=== PATIENT | male | born 1955 | race Caucasian/White ===

== ENCOUNTER 2018-12-17 08:19 | Emergency (ER) | payer BC ==
[~2018-12-17] VITALS: Ht 175.3 cm; Wt 81.7 kg
--- OUTSIDE RECORDS SUMMARY | ~2018-12-17 | XMS | Clinical Summary ---
Demographics + + + | Address | [address] | | | [place] [address] | + + + | Home Phone | | + + + | Preferred Language | Unknown | + + + | Marital Status | | + + + | Restorationist Affiliation | Unknown | + + + | Race | Unknown | + + + | Ethnic Group | Unknown | + + + Author + + + | Author | [facility] | + + + | Organization | [facility] | + + + | Address | Unknown | + + + | Phone | Unavailable | + + + Support + + +---------+ + | Name | Relationship | Address | Phone | + + +---------+ + | Bisi Howard | ECON | Unknown | | + + +---------+ + Care Team Providers + +------+ + | Care Slab Stripper Name | Role | Phone | + +------+ + | Lauri Mcgovern | PP | | + +------+ + Allergies + + + + + + | Active Allergy | Reactions | Severity | Noted | Comments | | | | | Date | | + + + + + + | Clindamycin | Rash | Medium | 03/22/20 | | | | | | 17 | | + + + + + + Current Medications + + +--------+---------+------+------+-------+ | Prescription | Sig. | Disp. | Refills | Star | End | Statu | | | | | | t | Date | s | | | | | | Date | | | + + +--------+---------+------+------+-------+ | | | | | 06/2 | | Activ | | bisoprolol-hydrochlo | | | | /20 | | e | | rothiazide (ZIAC) | | | | 17 | | | | 5-6.25 MG per tablet | | | | | | | + + +--------+---------+------+------+-------+ | meloxicam (MOBIC) | | | | 07/0 | | Activ | | 15 MG tablet | | | | 520 | | e | | | | | | 17 | | | + + +--------+---------+------+------+-------+ | methotrexate 2.5 | Take 6 tablets by | 30 | 2 | 08/2 | | Activ | | MG | mouth once a week. | tablet | | /20 | | e | | tabletIndications: | | | | 17 | | | | Rheumatoid Arthritis | | | | | | | + + +--------+---------+------+------+-------+ | folic acid | Take 1 tablet by | 90 | 11 | 08/2 | | Activ | | (FOLVITE) 1 MG | mouth daily for 90 | tablet | | 09/22 | | e | | tabletIndications: | days. | | | 17 | | | | Rheumatoid arthritis | | | | | | | | involving multiple | | | | | | | | sites with positive | | | | | | | | rheumatoid factor | | | | | | | | (FORMERLY [facility]), High risk | | | | | | | | medication use | | | | | | | + + +--------+---------+------+------+-------+ Active Problems + + + | Problem | Noted Date | + + + | Rheumatoid arthritis involving multiple sites with positive | 04/23/2017 | | rheumatoid factor (FORMERLY [facility]) | | + + + + + | Last Assessment & Plan: - sero-positive, non-erosive RA- will | | start him on MTX 15 mg/ewek, FA. To repeat CBC/CMP in 6 weeks- | | RTC in 3 monthsPatient was advised that methotrexate can cause | | mouth sores, hair loss, and fatigue, bone marrow toxicity and | | that blood would need to be checked 4 weeks after starting the | | medication and to call if there was trouble tolerating it. Liver | | toxicity is also possible so blood would need to be monitored | | every 2 to 3 months for as long as the medicine was taken. | | Patient was advised to avoid alcohol consumption while taking | | methotrexate. Long-term risks include lymphoma. A baseline chest | | Xray was already obtained | + + + + + | High risk medication use | 04/23/2017 | + + + + + | Last Assessment & Plan: Basic labs Monitored (CBC,CMP and | | ESR): Up to date. Repeat in 6 weeks Labs routinely ordered due | | to high risk medication use- Monitored for cytopenias, liver | | toxicity, renal dysfunction and disease activity. Hepatitis | | panel: negative March 2017This will be checked every 5 years | | based on patients risk or at time of biologic drug change. | + + + + + | H/O calcium pyrophosphate deposition disease (CPPD) | 04/23/2017 | + + + + + | Last Assessment & Plan: - based on xray findings. Clinical | | features are not suggestive of typical symptoms of pseudogout - | | may consider adding Colchicine or work-up for secondary causes if | | his symptoms do not improve with current treatment plan | + + Family History + +------+ + + | Relation | Name | Status | Comments | + +------+ + + | Father | | | | + +------+ + + | Mother | | Alive | | + +------+ + + Social History + +-------+ +--------+------+ | Tobacco Use | Types | Packs/Day | Years | Date | | | | | Used | | + +-------+ +--------+------+ | Former Smoker | | | | | + +-------+ +--------+------+ + +---+---+---+ | Smokeless Tobacco: | | | | | Never Used | | | | + +---+---+---+ + + +---------+ + | Alcohol Use | Drinks/We | oz/Week | Comments | | | ek | | | + + +---------+ + | No | | | | + + +---------+ + + + + | Sex Assigned at | Date Recorded | | | | + + + | Not on file | | + + + Last Filed Vital Signs + + + + | Vital Sign | Reading | Time Taken | + + + + | Blood Pressure | 162/90 | 04/23/2017 11:14 AM PDT | + + + + | Pulse | 53 | 04/23/2017 10:43 AM PDT | + + + + | Temperature | 36.1 C (97 F) | 04/23/2017 10:43 AM PDT | + + + + | Respiratory Rate | - | - | + + + + | Oxygen Saturation | - | - | + + + + | Inhaled Oxygen | - | - | | Concentration | | | + + + + | Weight | 97.4 kg (214 lb 12.8 | 04/23/2017 10:43 AM PDT | | | oz) | | + + + + | Height | - | - | + + + + | Body Mass Index | - | - | + + + + Plan of Treatment + + + + + | Health Maintenance | Due Date | Last Done | Comments | + + + + + | Vaccine: | | | | | Dtap/Tdap/Td (1 - | 5 | | | | Tdap) | | | | + + + + + | Colon Cancer | | | | | Screening | 6 | | | | (Colonoscopy) | | | | + + + + + | Vaccine: Zoster (1 | | | | | of 2) | 6 | | | + + + + + | Vaccine: Influenza | | | | | (Season Ended) | 9 | | | + + + + + Results Not on filefrom Last 3 Months Insurance +---------+--------+ +------+-------+ + | Payer | Benefi | Subscriber | Type | Phone | Address | | | t Plan | ID | | | | | | / | | | | | | | Group | | | | | +---------+--------+ +------+-------+ + | PREMERA | PREMER | [id number] | | | [address] [address] | | | [place] | | | | [place], [place] | | | [place] | | | | [phone] | | | FED | | | | | | | PPO | | | | | +---------+--------+ +------+-------+ + + +--------+ +--------+ + + | Guarantor Name | Accoun | Relation to | Date | Phone | Billing Address | | | t Type | Patient | of | | | | | | | | | | + +--------+ +--------+ + + | VICTOR HUGO HOWARD | Person | Self [birth year] | 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
--- OUTSIDE RECORDS SUMMARY | ~2018-12-17 | XMS | Clinical Summary ---
Demographics + + + | Address | [address] | | | [place] [address] | + + + | Home Phone | | + + + | Preferred Language | Unknown | + + + | Marital Status | | + + + | Roman Catholic Affiliation | Unknown | + + + | Race | Unknown | + + + | Ethnic Group | Unknown | + + + Author + + + | Author | [facility] | + + + | Organization | [facility] | + + + | Address | Unknown | + + + | Phone | Unavailable | + + + Support + + +---------+ + | Name | Relationship | Address | Phone | + + +---------+ + | Bisi Howard | ECON | Unknown | | + + +---------+ + Care Team Providers + +------+ + | Care Editor Managing Newspaper Name | Role | Phone | + [...] | | | | | | (FORMERLY [facility]), High risk | | | | | | | | medication use | | | | | | | + + +--------+---------+------+------+-------+ Active Problems + + + | Problem | Noted Date | + + + | Rheumatoid arthritis involving multiple sites with positive | 04/23/2017 | | rheumatoid factor ([facility]LY [facility]) | | + + + + + [...] +------+-------+ + | PREMERA | PREMER | [id number] | | | [address] [address] | | | [place] | | | | [place], [place] | | | [place] | | | | [phone] | | | FED | | | [...] [birth year] | 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
[~2018-12-17 08:19] MED LIST: BENICAR20 MG PO; BISOPROLOL-HCT1 EAC1 PO; BISOPROLOL-HCT1 EACH PO; DILAUDID4 MG PO; FLOMAX0.4 MG PO; HYDROMORPHONE HC4 MG PO; OXYCODONE HCL5 MG PO; XARELTO10 MG PO
--- NOTE | 2018-12-17 16:56 | EKG ---
[facility] [address] [facility] [place], [place] [address] Signed Normal sinus rhythm Normal ECG No previous ECGs available Confirmed by ALINA CHRISTINE DO ([id number]) on 12/17/2018 4:56:33 PM Electronically Signed By: ALINA CHRISTINE DO 12/17/18 1656 PATIENT NAME: VINH HOWARD Electrocardiogram DATE OF : 57 PHYSICIAN: ALINA CHRISTINE DO REPORT #: [id number] REPORT IS CONFIDENTIAL AND NOT TO BE RELEASED WITHOUT AUTHORIZATION
== END 2018-12-17 10:15 | disposition home or self-care (01) ==
LOC: ED 08:19
DX: R07.89 Other chest pain (principal); I10 Essential (primary) hypertension; K21.9 Gastro-esophageal reflux disease without esophagitis; Z88.1 Allergy status to other antibiotic agents; Z79.899 Other long term (current) drug therapy
CPT/HCPCS: 71045; 80053; 84484; 85025; 93005; 93010; 99285-25

== ENCOUNTER 2021-05-12 06:30 | Day surgery (SDC) | payer OTHER ==
[~2021-05-12] VITALS: Ht 175.3 cm; Wt 90.2 kg
[~2021-05-12 06:30] MED LIST changes: +CHLORTHALIDONE25 MG PO; +IBUPROFEN200 M1 PO; +LISINOPRIL5 MG PO
--- NOTE | 2021-05-12 08:02 | NUR ---
05/12/21 0802 Francheska Bourgeois 075 PATIENT ARRIVES TO PACU RESTING WITH EYES CLOSED. OPENS EYES AND RESPONDS APPROPRIATELY TO QUESTIONS, BACK TO SLEEP WHEN NOT STIMULATED RESP EVEN AND UNLABORED, SNORES AT TIMES, NC AT 3 LITERS, SATS >93%. PASSIN GAS.
--- NOTE | 2021-05-13 07:26 | OR ---
[facility] [address] [place], [place] [address] Signed DATE OF OPERATION: 05/12/2021 SURGEON: Yung Cooper MD PREOPERATIVE DIAGNOSES: 1. Mother with colon cancer in her late 70s. 2. Father with colon cancer, age 83. 3. Personal history of colonic polyps in [address] Moreno. 4. Diverticulosis. 5. Negative guaiac stool in 2019. POSTOPERATIVE DIAGNOSES: 1. 5 mm polyp at 12 cm (rectum). 2. Minimal internal hemorrhoids. 3. Moderate sigmoid diverticulosis. PROCEDURE: Colonoscopy with hot biopsy. ESTIMATED BLOOD LOSS: None. INDICATIONS: Victor Hugo is a 66-year-old gentleman, asked to see me for a followup colonoscopy. He currently has no lower GI complaints. His mother had developed colon cancer in late 70s. His father was diagnosed with colon cancer at age 83. Victor Hugo remembers having polyps [place] in [address] Moreno. He was told he had diverticulosis. He also was guaiac negative in 2019. In the office, I gave him a pamphlet on colonoscopy and we looked at that together. He understands the nature of that test. There is risk including, but not limited to gas bloating, crampy abdominal pain, bleeding, perforation requiring surgery, and missed diagnosis. He also understands the need for IV conscious sedation. He had expressed understanding and wished to proceed. PROCEDURE NOTE: Victor Hugo was taken into our endoscopy suite and placed in the left lateral decubitus position. He did receive Ancef due to his bilateral hip replacements. He also received 6 mg of Versed and 150 mcg of fentanyl to cover the case. A digital rectal exam was performed. He was getting some induration and slight enlargement to his prostate gland. The adult colonoscope was introduced and advanced under direct visualization into the cecum itself without difficulty. Overall, his prep was good. A couple of areas had to Electronically Signed By: YUNG COOPER MD 05/13/21 0726 PATIENT NAME: VICTOR HUGO HOWARD OPERATIVE REPORT DATE OF : 57 REPORT #: [id number] PHYSICIAN: YUNG COOPER MD PCP: [place] NICOLE MD REPORT IS CONFIDENTIAL AND NOT TO BE RELEASED WITHOUT AUTHORIZATION [facility] [address] [place] [address] Signed be irrigated and suctioned out. We could easily see the appendiceal orifice and the ileocecal valve. We took pictures throughout for photodocumentation. The scope was then slowly withdrawn. He does have diverticula in the sigmoid colon. They were moderate in size, moderate in number, and scattered about. The rectum showed a 5 mm polyp at 12 cm. It was easily removed with hot biopsy forceps. Upon retroflexion of the scope, he does have minimal internal hemorrhoid columns. After this, the gas was suctioned out and colonoscope removed. Victor Hugo tolerated the procedure quite well. RECOMMENDATIONS: Victor Hugo can follow up in my office in 7 to 14 days to review his results. He will be on the 5-year rotation. Yung Cooper MD ALB/MODL /[id number] cc: Chart Filed Incomplete MD Yung Kuhn MD Copies: CHART FILED INCOMPLETE YUNG COOPER MD ~ Electronically Signed By: YUNG COOPER MD 05/13/21 0726 PATIENT NAME: VICTOR HUGO HOWARD OPERATIVE REPORT DATE OF : 57 REPORT #: [id number] PHYSICIAN: YUNG COOPER MD PCP: [place] NICOLE MD REPORT IS CONFIDENTIAL AND NOT TO BE RELEASED WITHOUT AUTHORIZATION
--- NOTE | 2021-05-13 12:07 | PATH ---
[facility] [address] [place], [place] [address] Signed SPECIMEN(S): A RECTAL POLYP AT 12 CM SPECIMEN SOURCE: A. RECTAL POLYP AT 12 CM CLINICAL HISTORY: Colonoscopy. History of polyps. MICROSCOPIC DESCRIPTION: Histologic sections of all submitted blocks are examined by light microscopy. These findings, together with the gross examination, support the pathologic diagnosis. FINAL PATHOLOGIC DIAGNOSIS: Rectum, polyp at 12 cm, polypectomy: - Hyperplastic polyp. - Negative for dysplasia or malignancy. NAL:cml:C2NR GROSS DESCRIPTION: The specimen, labeled "KO, #1," and designated on the requisition "rectum polyp at 12 cm," is received in formalin and consists of one velazquez soft tissue fragment that measure 0.3 cm in greatest dimension. The specimen is entirely submitted in cassette (A1). AT (under the direct supervision of a pathologist) The Gross Description was prepared using a voice recognition system. The report was reviewed for accuracy; however, sound-alike word errors, addition and/or deletions may occur. If there is any question about this report, please contact Client Services. PERFORMING LABORATORY: The technical component was performed by [facility], [address] [place] [address] (Clothing Supervisor: Opal Crum MD; CLIA# [id number]). [facility], [address] [address] (CLIA# [id number]). Diagnostician: Simona Harris MD Pathologist Electronically Signed 05/13/2021 PATIENT NAME: VINH HOWARD PATHOLOGY DATE OF : 57 REPORT #: [id number] PHYSICIAN: [facility] PATH[facility] PCP: [place] NICOLE MD REPORT IS CONFIDENTIAL AND NOT TO BE RELEASED WITHOUT AUTHORIZATION [address] [place], [place] [address] Signed Copies: ~ PATIENT NAME: VINH HOWARD PATHOLOGY DATE OF : 57 REPORT #: [id number] PHYSICIAN: [facility] PATHOLOGY PCP: [place] NICOLE MD REPORT IS CONFIDENTIAL AND NOT TO BE RELEASED WITHOUT AUTHORIZATION
== END 2021-05-12 08:45 | disposition home or self-care (01) ==
LOC: OPS 06:30 → DS 06:30 → OPS 06:45
PROVIDERS: ATTEND Colon & Rectal Surgery
PROC: 0DBP8ZX Excision of Rectum, Via Natural or Artificial Opening Endoscopic, Diagnostic (ICD-10-PCS; principal; 2021-05-12 06:45)
DX: D12.8 Benign neoplasm of rectum (principal); K64.8 Other hemorrhoids; K57.30 Diverticulosis of large intestine without perforation or abscess without bleeding; I10 Essential (primary) hypertension; N40.0 Benign prostatic hyperplasia without lower urinary tract symptoms; Z87.891 Personal history of nicotine dependence; Z88.8 Allergy status to other drugs, medicaments and biological substances; Z91.048 Other nonmedicinal substance allergy status; Z80.0 Family history of malignant neoplasm of digestive organs
CPT/HCPCS: 99153; G0500; J0690; J2250; J3010; J7121

== ENCOUNTER 2024-11-26 10:30 | Emergency (ER) | payer OTHER, MEDICARE ==
[~2024-11-26] VITALS: Ht 175.3 cm; Wt 85.4 kg
[2024-11-26] MEDS ORDERED: SODIUM CHLORIDE 0.9% 1,000 ML IV ONE (11:15)
[2024-11-26 11:19] LABS: BASOPHILS 0.8 % (0-2); EOSINOPHILS 0.7 % (0-6); HEMATOCRIT 37.4 % (35.0-50.0); HEMOGLOBIN 12.4 g/dL (12.0-18.0); LYMPHOCYTES 18.1 % (24-44); MCH 28.2 (27-36); MCHC 33.3 g/dl (30-36); MCV 84.8 fl (81-99); MONOCYTES 8.2 % (0-12); NEUTROPHILS 72.2 % (39-80); PLATELET COUNT 274 K/uL (140-440); RBC 4.41 M/ul (4.3-5.7); RDW 14.7 (10.5-15.0)
[2024-11-26 11:33] LABS: ALBUMIN 3.4 g/dL (3.4-5.0); ALBUMIN/GLOBULIN RATIO 0.83 (1.1-2.4); ANION GAP 13.9 (7-21); BILIRUBIN, TOTAL 0.4 mg/dL (0.2-1.0); BUN/CREATININE RATIO 10.16 (6.0-28.6); CALCIUM 9.1 mg/dL (8.5-10.1); CREATININE, SERUM 1.18 mg/dL (0.70-1.30); POTASSIUM 3.9 mmol/L (3.5-5.1); PROTEIN, TOTAL 7.5 g/dL (6.4-8.2)
[2024-11-26 11:38] LABS: BILIRUBIN, URINE NEGATIVE (negative); BLOOD/HGB, URINE NEGATIVE (Negative); KETONE, URINE NEGATIVE (Negative); LEUK ESTERASE, URINE NEGATIVE (negative); NITRITE, URINE NEGATIVE (negative)
[2024-11-26] MEDS ORDERED: LEVOFLOXACIN750 MG PO (12:44)
[2024-11-26] MEDS ORDERED: METRONIDAZOLE500 MG PO (12:44)
[2024-11-26] MEDS ORDERED: metroNIDAZOLE 250 MG TAB PO ONE (12:45)
[2024-11-26] MEDS ORDERED: levoFLOXacin 750 MG TAB PO ONE (12:45)
[2024-11-26 13:08] VITALS: BP 166/97
== END 2024-11-26 13:15 | disposition home or self-care (01) ==
LOC: ED 10:30
PROVIDERS: Emergency Medicine
DX: K57.92 Diverticulitis of intestine, part unspecified, without perforation or abscess without bleeding (principal); I10 Essential (primary) hypertension; Z88.1 Allergy status to other antibiotic agents
CPT/HCPCS: 36415; 74177; 80053; 81003; 83690; 85025; 96361; 99284-25; J7030; Q9967

== ENCOUNTER 2025-07-16 10:39 | Emergency (ER) | payer OTHER | END 2025-07-16 13:42 | disposition home or self-care (01) | LOC: ED 10:39 | DX: K61.1 Rectal abscess (principal); I10 Essential (primary) hypertension; K21.9 Gastro-esophageal reflux disease without esophagitis; M19.90 Unspecified osteoarthritis, unspecified site; Z79.2 Long term (current) use of antibiotics ==

== ENCOUNTER 2025-07-22 08:00 | Day surgery (SDC) | payer OTHER ==
[~2025-07-22] VITALS: Ht 175.3 cm; Wt 86.0 kg
[~2025-07-22 08:00] MED LIST changes: +BENEFIBER PO; +CEFAZOLIN SODIUM 2 GM in SODIUM CHLORIDE 0.9% 100 ML IV SCH; +CEPHALEXIN500 M1 PO; +HYDROCODON-ACE1 EA11 PO; +IBLOOD GLUCOSE TEST STRIP 1 EA TEST VI PRN; +LACTATED RINGER'S 1,000 ML IV SCH; +LEVOFLOXACIN750 MG PO; +LIDOCAINE HCL 1% 5 ML SDV INJ ONE; +MELOXICAM10 MG PO; +METRONIDAZOLE500 MG PO; +NORVASC5 MG PO; +ZESTRIL40 MG PO
[2025-07-22 08:15] VITALS: BP 136/81
[2025-07-22] MEDS ORDERED: LIDOCAINE HCL 2% 5 ML SDV ONE (09:48)
[2025-07-22] MEDS ORDERED: LIDOCAINE 1% W/ EPI 1:100,000 20 ML MDV ONE (10:25)
--- NOTE | 2025-07-22 11:11 | NUR ---
07/22/25 Nataliia Collins 1058- PT ARRIVES TO PACU, SEMI ARCHIBALD LEFT LATERAL POSITION, NON REACTIVE TO STIMULUS. BREATHING EVEN AND NON LABORED ON 4L O2 PER NC. PT HAS INTERMITTENT FULL BODY TREMORS THAT IS REPORTED NORMAL THROUGHOUT THE CASE BY APPLIANCE SALES ASSOCIATE WILL. LR INFUSING TO RAC IV. ABD SOFT, NON DISTENDED. ALL MONITORS IN PLACE. 1108- O2 TURNED DOWN TO 2L PER NC AT THIS TIME. PT REMAINS NON REACTIVE TO STIMULUS.
[2025-07-22 11:31] VITALS: BP 124/87
--- NOTE | 2025-07-27 11:24 | PATH ---
[facility] [address] [place], [place] [address] Signed THIS IS AN ADDENDUM REPORT SPECIMEN(S): A RANDOM COLON AND RECTUM BIOPSY SPECIMEN(S): B SIGMOID COLON BIOPSY SPECIMEN(S): C ANTRUM BIOPSY SPECIMEN(S): D GE JUNCTION SPECIMEN SOURCE: A. RANDOM COLON AND RECTUM BIOPSY B. SIGMOID COLON BIOPSY C. ANTRUM BIOPSY D. GE JUNCTION CLINICAL HISTORY: Pre-op: GERD, history of polyps, internal hemorrhoids, diverticulosis. C: Rule out H. pylori FINAL PATHOLOGIC DIAGNOSIS: A. Random colon and rectum biopsy for colitis: - Colonic mucosa with a small focus of active acute and chronic colitis with associated noncaseating granulomatous inflammation - Consistent with Crohn's disease given the appropriate clinical and endoscopic findings - Negative for dysplasia or malignant neoplasm B. Sigmoid colon biopsy for colitis: - Colonic mucosa with active acute and chronic colitis - Negative for dysplasia or malignant neoplasm C. Antrum biopsy: - Benign gastric mucosa - Negative for active acute inflammation, intestinal metaplasia, dysplasia, or Helicobacter organisms by routine HE stain. D. GE junction biopsy: - Benign squamous and glandular mucosa with focal granulation tissue and fibrinopurulent debris; consistent with ulcer - Negative for intestinal metaplasia, dysplasia, or eosinophilia - A PAS fungal stain will be performed and the results issued in an addendum report BB MICROSCOPIC EXAMINATION: Histologic sections of all submitted blocks are examined by light microscopy. PATIENT NAME: ANITAVINH HSU PATHOLOGY DATE OF : 57 REPORT #: [id number] PHYSICIAN: DIMITRI COOK PCP: NO PRIMARY CARE PHYSICIAN REPORT IS CONFIDENTIAL AND NOT TO BE RELEASED WITHOUT AUTHORIZATION [facility] [address] [place], [place] [address] Signed These findings, together with the gross examination, support the pathologic diagnosis. Histologic sections of all submitted blocks are examined by light microscopy. These findings, together with the gross examination, support the pathologic diagnosis. GROSS DESCRIPTION: A. The specimen, labeled and designated "Howard, random colon and rectum biopsy for colitis," is received in formalin and consists of two velazquez soft tissue fragments, ranging from 0.1 cm. Entirely submitted in (A1). B. The specimen, labeled and designated "Howard, sigmoid colon biopsy for colitis," is received in formalin and consists of three velazquez soft tissue fragments, ranging from 0.1 cm. Entirely submitted in (B1). C. The specimen, labeled and designated "Howard, antrum biopsy," is received in formalin and consists of one velazquez soft tissue fragment, 0.2 cm. Entirely submitted in (C1). D. The specimen, labeled and designated "Howard, GE junction biopsy," is received in formalin and consists of three velazquez soft tissue fragments, ranging from 0.1-0.2 cm. Entirely submitted in (D1). JS (under the direct supervision of a pathologist) The Gross Description was prepared using a voice recognition system. The report was reviewed for accuracy; however, sound-alike word errors, addition and/or deletions may occur. If there is any question about this report, please contact Client Services. ADDITIONAL NOTES: Immunohistochemical and/or in situ hybridization studies if performed in this case included appropriate positive controls that reacted as expected. This test was developed and its performance characteristics determined by [facility]. It has not been cleared or approved by the U.S. Food and Drug Administration. The FDA has determined that such clearance or approval is not necessary. This test is used for clinical purposes. It should not be regarded as investigational or for research. [facility] is certified under the Clinical Laboratory Improvement Amendments of 1988 (CLIA) as qualified to perform high complexity clinical laboratory testing. PERFORMING LABORATORY: PATIENT NAME: VINH HOWARD PATHOLOGY DATE OF : 57 REPORT #: [id number] PHYSICIAN: [facility] Consult PATHOLOGY PCP: NO PRIMARY CARE PHYSICIAN REPORT IS CONFIDENTIAL AND NOT TO BE RELEASED WITHOUT AUTHORIZATION [facility] [address] [place], [place] [address] Signed Technical component was performed by [facility], [address] [place] [address] (CLIA# [id number]). Professional interpretation was performed by [email or web address] - [address] [place] [address] (CLIA#: [id number]). ADDITIONAL NOTES: Immunohistochemical and/or in situ hybridization studies if performed in this case included appropriate positive controls that reacted as expected. This test was developed and its performance characteristics determined by [facility]. It has not been cleared or approved by the U.S. Food and Drug Administration. The FDA has determined that such clearance or approval is not necessary. This test is used for clinical purposes. It should not be regarded as investigational or for research. [facility] is certified under the Clinical Laboratory Improvement Amendments of 1988 (CLIA) as qualified to perform high complexity clinical laboratory testing. Professional interpretation was performed by [email or web address] [place] [facility] - [address] [place] [address] (CLIA#: [id number]). REASON FOR ADDENDUM: To report the results of a PAS with diastase stain on specimen D. ADDENDUM PATHOLOGIC DIAGNOSIS: ADDENDUM COMMENT: A PAS with diastase stain is performed with appropriate controls on block B1 and is negative for fungal organisms. The original diagnostic features remain unchanged. [facility] Diagnostician: Josef Dong MD Pathologist Diagnostician: Gael Lomas MD Pathologist Electronically Signed 07/27/2025 Copies: ~ PATIENT NAME: VINH HOWARD PATHOLOGY DATE OF : 57 REPORT #: [id number] PHYSICIAN: [id number] [facility] PCP: NO PRIMARY CARE PHYSICIAN REPORT IS CONFIDENTIAL AND NOT TO BE RELEASED WITHOUT AUTHORIZATION
== END 2025-07-22 11:50 | disposition home or self-care (01) ==
LOC: DS 08:00
PROVIDERS: ATTEND Surgery
PROC: 0DBP8ZX Excision of Rectum, Via Natural or Artificial Opening Endoscopic, Diagnostic (ICD-10-PCS; 2025-07-22)
PROC: 0DB68ZX Excision of Stomach, Via Natural or Artificial Opening Endoscopic, Diagnostic (ICD-10-PCS; 2025-07-22)
PROC: 0DBH8ZZ Excision of Cecum, Via Natural or Artificial Opening Endoscopic (ICD-10-PCS; principal; 2025-07-22 08:50)
PROC: 0DBN8ZX Excision of Sigmoid Colon, Via Natural or Artificial Opening Endoscopic, Diagnostic (ICD-10-PCS; 2025-07-22 08:50)
DX: K21.00 Gastro-esophageal reflux disease with esophagitis, without bleeding (principal); K22.10 Ulcer of esophagus without bleeding; K44.9 Diaphragmatic hernia without obstruction or gangrene; K50.10 Crohn's disease of large intestine without complications; K63.5 Polyp of colon; I10 Essential (primary) hypertension; Z86.0102 Personal history of hyperplastic colon polyps; Z88.1 Allergy status to other antibiotic agents; Z91.09 Other allergy status, other than to drugs and biological substances; Z79.1 Long term (current) use of non-steroidal anti-inflammatories (NSAID); Z79.899 Other long term (current) drug therapy; Z80.0 Family history of malignant neoplasm of digestive organs
CPT/HCPCS: 00813; 88305; 88312; J0688; J2003; J2704; J7121